=== PATIENT | female | born 1970 | race Caucasian/White ===

== ENCOUNTER → 2016-09-17 | Outpatient (CLI) | payer BC ==
[~2016-09-17] MED LIST: IBUPROFEN PO; WELLBUTRIN PO
--- NOTE | ~2016-09-17 | MY11 ---
[facility] A Service [facility] RADIOLOGY TEXT RESULTS PATIENT: NOHEMY QUINTERO LOCATION: [facility] : 70 UNIT #: [id number] AGE: [address]: Elvin Saeed MD SEX: F ORDER DR: [id number] [address] [id number] P MR#: [id number] Acc #: [id number] NAME: NOHMEY QUINTERO : 1970 SEX: F STUDY DATE/TIME: 09/17/2016 11:59 UNIT: [facility] ROOM: STUDY DESCRIPTION: MY Mammogram Screening Dig Silviano Attending Physician: Elvin Saeed M.D. Ordering Physician: Elvin Saeed M.D. Primary Care Physician: Elvin Saeed M.D. MEDICAL IMAGING REPORT This report is preliminary unless electronic signature is present. EXAM Bilateral digital screening mammogram with CAD. DATE OF EXAM 09/17/2016 COMPARISON February 21, 2015, October 29, 2013, September 18, 2012, March 26, 2011, September 11, 2010 and September 04, 2010. INDICATIONS Breast cancer screening. 46-year asymptomatic female. No personal or family history of breast cancer. FINDINGS Bilateral CC and MLO views were obtained with and without implant displacement. There are scattered fibroglandular densities. There are intact bilateral subpectoral saline breast implants. IMPRESSION 1. Intact saline breast implants. 2. No mammographic evidence of malignancy. Continued annual screen mammography and clinical breast exam are recommended. Patients over the age of 40 are entered into a reminder system with target due date for the next mammogram. A result letter will also be sent to the patient. BIRADS: 2 Benign findings. [facility] A Service [facility] RADIOLOGY TEXT RESULTS PATIENT: NOHEMY QUINTERO LOCATION: [facility] : 70 UNIT #: [id number] AGE: [address]: Elvin Saeed MD SEX: F ORDER DR: Dictated by... Jovanni Ryder M.D. THIS IS AN ELECTRONICALLY VERIFIED REPORT Jovanni Ryder M.D. at 09/19/2016 7:17 PM VICENTA/loli TD: 09/17/2016 21:47 JOB #: [id number] MEDICAL IMAGING REPORT
== END | disposition home or self-care (01) ==
LOC: SMAM 07:36
DX: Z12.31 Encounter for screening mammogram for malignant neoplasm of breast (principal); Z98.82 Breast implant status
CPT/HCPCS: G0202